=== PATIENT | male | born 1970 | race Caucasian/White ===

== ENCOUNTER 2019-01-09 13:41 | Emergency (ER) | payer BC, OTHER ==
[~2019-01-09] VITALS: Ht 177.8 cm; Wt 69.0 kg
[2019-01-09] MEDS ORDERED: ASPIRIN 81 MG TABLET CHEW ONE (14:09)
[2019-01-09 14:21] LABS: BASOPHILS # (AUTO) 0.03 x10^3/uL (0-0.1); BASOPHILS % (AUTO) 0 % (0-1); EOSINOPHILS # (AUTO) 0.07 x10^3/uL (0-0.4); EOSINOPHILS % (AUTO) 1 % (1-7); LYMPHOCYTES # (AUTO) 0.75 x10^3/uL (1-3.4); LYMPHOCYTES % (AUTO) 8 % (22-44); MD NO; MEAN CORPUSCULAR HEMOGLOBIN 29.4 pg (27.5-34.5); MEAN CORPUSCULAR VOLUME 88.9 fL (81-97); MONOCYTES # (AUTO) 0.41 x10^3/uL (0.2-0.8); MONOCYTES % (AUTO) 4 % (2-9); NEUTROPHILS % (AUTO) 87 % (42-75); PLATELET COUNT 220 x10^3/uL (130-400); RED BLOOD COUNT 5.19 x10^6/uL (4.38-5.82)
[2019-01-09] MEDS ORDERED: ASPIRIN 81 MG TABLET CHEW PO ONE (14:30)
[2019-01-09 14:32] LABS: ALBUMIN 3.9 g/dL (3.4-5.0); ANION GAP 7 mmol/L (5-15); CALCIUM 8.5 mg/dL (8.5-10.1); CHLORIDE 108 mmol/L (98-107); CREATININE 1.02 mg/dL (0.7-1.3)
[2019-01-09 14:35] LABS: TROPONIN I < 0.015 ng/mL (0.000-0.045)
--- NOTE | 2019-01-09 15:00 | NUR ---
pt laying on gurney awake & comfortable, responds approp to staff, NAD, comfort measures provided, at BS, call light within reach.
[2019-01-09 15:29] VITALS: BP 91/65
--- NOTE | 2019-01-09 15:37 | NUR ---
pt tolerated OBP & ambulation well, denies dizziness/lightheadedness or nausea, ERP aware.
--- NOTE | 2019-01-09 16:13 | NUR ---
Patient given discharge instructions and they have confirmed that they understand the instructions. Patient ambulatory with steady gait.
== END 2019-01-09 16:14 | disposition home or self-care (01) ==
LOC: ED 15:28
DX: R55 Syncope and collapse (principal); R00.2 Palpitations
CPT/HCPCS: 36415; 71045; 80048; 82040; 82962; 84484; 85025; 85379; 93005; 99284